=== PATIENT | female | born 1980 | race Caucasian/White ===

== ENCOUNTER 2018-12-25 05:44 | Day surgery (SDC) | payer OTHER ==
[2018-12-25] MEDS: BUPIVACAINE 0.5%/EPI (SDV) 30 ML INJ INJ
[2018-12-25] MEDS ORDERED: LIDOCAINE 2% (SDV) 5 ML INJ (07:17)
[2018-12-25] MEDS ORDERED: CEFAZOLIN 1 GM INJ (07:17)
[2018-12-25] MEDS ORDERED: FENTAnyl 50 MCG/ML VIAL ×2 (07:17→08:27)
[2018-12-25] MEDS ORDERED: ROCURONIUM 50 MG INJ (07:17)
[2018-12-25] MEDS ORDERED: PROPOFOL 20 ML (07:17)
[2018-12-25] MEDS ORDERED: MIDAZOLAM 1 MG/ML 2 ML INJ (07:17)
[2018-12-25] MEDS ORDERED: DEXAMETHASONE 4 MG/ML 5 ML INJ (07:48)
[2018-12-25] MEDS ORDERED: METOCLOPRAMIDE 10 MG INJ (07:48)
[2018-12-25] MEDS ORDERED: ONDANSETRON 4 MG INJ (07:48)
[2018-12-25] MEDS ORDERED: FAMOTIDINE 20 MG INJ (07:49)
[2018-12-25] MEDS ORDERED: NEOSTIGMINE 3 MG/3 ML SYRINGE (08:16)
[2018-12-25] MEDS ORDERED: GLYCOPYRROLATE 0.4 MG INJ (08:16)
[2018-12-25] MEDS ORDERED: MEPERIDINE 25 MG INJ IV (08:30)
[2018-12-25] MEDS ORDERED: ONDANSETRON 4 MG INJ IV (08:30)
[2018-12-25] MEDS ORDERED: HYDROmorphONE 1 MG/5 ML IV SYRINGE IV ×3 (08:30)
[2018-12-25] MEDS ORDERED: OXYCODONE/ACETAMINOPHEN (5/325) TAB PO ×2 (08:30)
== END 2018-12-25 10:25 | disposition home or self-care (01) ==
LOC: SDS 05:44
DX: Z30.2 Encounter for sterilization (principal); K66.0 Peritoneal adhesions (postprocedural) (postinfection)
CPT/HCPCS: 58661; 88302; 93005